=== PATIENT | female | born 1990 | race Caucasian/White ===

== ENCOUNTER 2019-09-27 13:18 | Inpatient (IN) | payer BC, MEDICAID, OTHER ==
[2019-09-27] MEDS ORDERED: ONDANSETRON HCL INJ/PF 4 MG/2 ML SDV IV ONE (13:34)
[2019-09-27] MEDS ORDERED: NORMAL SALINE 1000 ML 1,000 ML IV ONE ×2 (13:34→14:58)
[2019-09-27] MEDS ORDERED: FAMOTIDINE INJ/PF 20 MG/2 ML SDV IV ONE (13:34)
--- NOTE | 2019-09-27 13:37 | ER Document Report ---
ED GI/ - General Chief Complaint: Abdominal Pain Stated Complaint: ABDOMINAL PAIN Time Seen by Provider: 09/27/19 13:24 Mode of Arrival: Ambulatory Information source: Patient Notes: Patient presents complaining of nausea for the past several weeks with vomiting for the past week. Patient states today she developed abdominal pain with the emesis. Patient states she is vomited numerous times today with diarrhea x1 episode. Patient does report occasional dysuria although denies any concerns about a UTI. Patient denies any fever. TRAVEL OUTSIDE OF THE [place] IN LAST 30 DAYS: No - HPI Patient complains to provider of: Abdominal pain, Diarrhea, Vomiting Onset: Last week Timing/Duration: Worse Quality of pain: Sharp Pain Level: 4 Location: LUQ Vaginal bleeding (Compared to normal period): None Associated symptoms: Diarrhea, Loss of appetite, Nausea, Vomiting. denies: Constipation, Urinary hesitancy, Urinary frequency, Urinary retention, Urinary urgency Exacerbated by: Denies Relieved by: Denies Similar symptoms previously: No Recently seen / treated by doctor: No - Related Data Allergies/Adverse Reactions: No Known Allergies Allergy (Verified 09/27/19 13:27) Past Medical History - General Information source: Patient - Social History Smoking Status: Current Every Day Smoker Chew tobacco use (# tins/day): No Frequency of alcohol use: Social Drug Abuse: Marijuana Occupation: Retail Family History: Reviewed & Not Pertinent Patient has suicidal ideation: No Patient has homicidal ideation: No Psychiatric Medical History: Reports: Hx Anxiety Past Surgical History: Reports: Other - lip Review of Systems - Review of Systems Constitutional: No symptoms reported. denies: Fever, Recent illness EENT: No symptoms reported Cardiovascular: No symptoms reported. denies: Chest pain Respiratory: No symptoms reported. denies: Cough Gastrointestinal: Abdominal pain, Diarrhea, Nausea, Vomiting Genitourinary: Dysuria Female Genitourinary: No symptoms reported Musculoskeletal: No symptoms reported Skin: No symptoms reported Hematologic/Lymphatic: No symptoms reported Neurological/Psychological: No symptoms reported Physical Exam - Vital signs Vitals: Temp Pulse Resp BP Pulse Ox 97.7 F 76 16 132/70 H 99 09/27/19 13:23 09/27/19 13:23 09/27/19 13:23 09/27/19 13:23 09/27/19 13:23 - General General appearance: Appears well, Alert In distress: None - HEENT Head: Normocephalic, Atraumatic Eyes: Normal Conjunctiva: Normal Nasal: Normal Mouth/Lips: Normal Pharynx: Normal Neck: Normal, Supple. No: Lymphadenopathy - Respiratory Respiratory status: No respiratory distress Chest status: Nontender Breath sounds: Normal. No: Rales, Rhonchi, Stridor, Wheezing Chest palpation: Normal - Cardiovascular Rhythm: Regular Heart sounds: S1 appreciated, S2 appreciated - Abdominal Inspection: Normal Distension: No distension Bowel sounds: Normal Tenderness: Tender - LUQ Organomegaly: No organomegaly - Back Back: CVA tenderness - left - Extremities General upper extremity: Normal inspection, Normal ROM General lower extremity: Normal inspection, Normal ROM - Neurological Neuro grossly intact: Yes Cognition: Normal [place] Coma Scale Eye Opening: Spontaneous [place] Coma Scale Verbal: Oriented [place] Coma Scale Motor: Obeys Commands [place] Coma Scale Total: 15 - Psychological Associated symptoms: Anxious - Skin Skin Temperature: Warm Skin Moisture: Dry Skin Color: Normal Course - Re-evaluation Re-evalutation: 09/27/19 16:[address] Jain regarding patient presentation and her pain management as patient currently takes Suboxone. Recommends waiting for patient's ultrasound report first before addressing pain symptoms at this time. 09/27/19 17:06 Discussed results of ultrasound with Dr. Jain who recommends consulting hospitalist for admission at this time. Consulted with Dr. Lopez agrees to come and evaluate patient for admission at this time. Patient is agreeable with this plan of care. - Vital Signs Vital signs: Temp Pulse Resp BP Pulse Ox 98.0 F 76 3 L 131/82 H 99 09/27/19 15:01 09/27/19 13:23 09/27/19 17:19 09/27/19 15:01 09/27/19 15:01 - Laboratory Result Diagrams: 09/27/19 14:28 09/27/19 14:28 Laboratory results interpreted by me: 09/27/19 09/27/19 09/27/19 14:28 14:28 14:28 WBC 14.5 H Lymph % (Auto) 10.6 L Absolute Neuts (auto) 11.9 H Seg Neutrophils % 82.5 H Sodium 135.2 L Chloride 97 L Glucose 114 H AST 49 H Lipase 1757.9 H Urine Protein 30 H Urine Glucose (UA) 50 H Urine Ketones TRACE H Labs- Entire Visit 09/27/19 09/27/19 09/27/19 14:28 14:28 14:28 WBC 14.5 H RBC 4.96 Hgb 15.3 Hct 44.5 MCV 90 MCH 30.9 MCHC 34.4 RDW 13.9 Plt Count 404 Lymph % (Auto) 10.6 L [place] % (Auto) 6.7 Eos % (Auto) 0.0 Baso % (Auto) 0.2 Absolute Neuts (auto) 11.9 H Absolute Lymphs (auto) 1.5 Absolute Monos (auto) 1.0 Absolute Eos (auto) 0.0 Absolute Basos (auto) 0.0 Seg Neutrophils % 82.5 H Sodium 135.2 L Potassium 3.8 Chloride 97 L Carbon Dioxide 24 Anion Gap 14 BUN 19 Creatinine 0.68 Est GFR ( Amer) > 60 Est GFR (MDRD) Non-Af > 60 Glucose 114 H Calcium 9.4 Total Bilirubin 0.6 Direct Bilirubin 0.2 Neonat Total Bilirubin Not Reportable Neonat Direct Bilirubin Not Reportable Neonat Indirect Bili Not Reportable AST 49 H ALT 22 Alkaline Phosphatase 88 Total Protein 7.4 Albumin 4.3 Lipase 1757.9 H Serum HCG, Qual NEGATIVE Urine Color Urine Appearance Urine pH Ur Specific [place] Urine Protein Urine Glucose (UA) Urine Ketones Urine Blood Urine Nitrite Urine Bilirubin Urine Urobilinogen Ur Leukocyte Esterase Urine WBC (Auto) Urine RBC (Auto) Urine Bacteria (Auto) Squamous Epi Cells Auto Urine Mucus (Auto) Urine Ascorbic Acid 09/27/19 14:28 WBC RBC Hgb Hct MCV MCH MCHC RDW Plt Count Lymph % (Auto) [place] % (Auto) Eos % (Auto) Baso % (Auto) Absolute Neuts (auto) Absolute Lymphs (auto) Absolute Monos (auto) Absolute Eos (auto) Absolute Basos (auto) Seg Neutrophils % Sodium Potassium Chloride Carbon Dioxide Anion Gap BUN Creatinine Est GFR ( Amer) Est GFR (MDRD) Non-Af Glucose Calcium Total Bilirubin Direct Bilirubin Neonat Total Bilirubin Neonat Direct Bilirubin Neonat Indirect Bili AST ALT Alkaline Phosphatase Total Protein Albumin Lipase Serum HCG, Qual Urine Color RAIZA Urine Appearance SLIGHTLY-CLOUDY Urine pH 5.0 Ur Specific [place] 1.030 Urine Protein 30 H Urine Glucose (UA) 50 H Urine Ketones TRACE H Urine Blood NEGATIVE Urine Nitrite NEGATIVE Urine Bilirubin NEGATIVE Urine Urobilinogen NEGATIVE Ur Leukocyte Esterase NEGATIVE Urine WBC (Auto) 5 Urine RBC (Auto) 3 Urine Bacteria (Auto) TRACE Squamous Epi Cells Auto 10 Urine Mucus (Auto) MANY Urine Ascorbic Acid NEGATIVE - Diagnostic Test Radiology reviewed: Reports reviewed Discharge - Discharge Clinical Impression: Abdominal pain Qualifiers: Abdominal location: unspecified location Qualified Code(s): R10.9 - Unspecified abdominal pain Pancreatitis Qualifiers: Chronicity: acute Pancreatitis type: alcohol induced Acute pancreatitis complication: unspecified Qualified Code(s): K85.20 - Alcohol induced acute pancreatitis without necrosis or infection Disposition: ADMITTED OBSERVATION Admitting Provider: John (Hospitalist) Unit Admitted: Medical Floor
[2019-09-27] MEDS ORDERED: MAG HYDROX/AL HYDROX/SIMETH SUSP 30 ML UDCUP PO ONE (14:31)
[2019-09-27] MEDS ORDERED: LIDOCAINE 2% VISCOUS SOLN 15 ML UDCUP PO ONE (14:31)
[2019-09-27 14:43] LABS: ABSOLUTE LYMPHOCYTES (AUTO) 1.5 10^3/uL (0.5-4.7); ABSOLUTE NEUT (AUTO) 11.9 10^3/uL (1.7-8.2); BASOPHILS % (AUTO) 0.2 % (0-2); HEMATOCRIT 44.5 % (36.0-47.0); HEMOGLOBIN 15.3 g/dL (12.0-15.5); LYMPHOCYTES % (AUTO) 10.6 % (13-45); MEAN CORPUSCULAR HEMOGLOBIN 30.9 pg (27.0-33.4); MEAN CORPUSCULAR HGB CONC 34.4 g/dL (32.0-36.0); MEAN CORPUSCULAR VOLUME 90 fl (80-97); MONOCYTES % (AUTO) 6.7 % (3-13); PLATELET COUNT 404 10^3/uL (150-450); RED BLOOD COUNT 4.96 10^6/uL (3.72-5.28); RED CELL DISTRIBUTION WIDTH 13.9 % (11.5-14.0); SEGMENTED NEUTROPHILS % (AUTO) 82.5 % (42-78); TOTAL CELLS COUNTED % (AUTO) 100 %; WHITE BLOOD COUNT 14.5 10^3/uL (4.0-10.5)
[2019-09-27 14:55] LABS: APPEARANCE,URINE SLIGHTLY-CLOUDY; BILIRUBIN,URINE NEGATIVE (NEGATIVE); COLOR,URINE AMBER; GLUCOSE, URINE 50 mg/dL (NEGATIVE); KETONES,URINE TRACE mg/dL (NEGATIVE); LEUKOCYTE ESTERASE,URINE NEGATIVE (NEGATIVE); NITRITE,URINE NEGATIVE (NEGATIVE); PROTEIN,URINE 30 mg/dL (NEGATIVE); UROBILINOGEN,URINE NEGATIVE mg/dL (<2.0)
[2019-09-27 15:06] LABS: ALBUMIN 4.3 g/dL (3.5-5.0); ALKALINE PHOSPHATASE 88 U/L (38-126); ANION GAP 14 (5-19); ASPARTATE AMINO TRANSFERASE 49 U/L (14-36); BILIRUBIN,DIRECT 0.2 mg/dL (0.0-0.4); BILIRUBIN,TOTAL 0.6 mg/dL (0.2-1.3); BLOOD UREA NITROGEN 19 mg/dL (7-20); CALCIUM 9.4 mg/dL (8.4-10.2); CARBON DIOXIDE 24 mmol/L (22-30); CHLORIDE 97 mmol/L (98-107); GLUCOSE 114 mg/dL (75-110); POTASSIUM 3.8 mmol/L (3.6-5.0); TOTAL PROTEIN 7.4 g/dL (6.3-8.2)
--- NOTE | 2019-09-27 16:33 | RADIOLOGY REPORT (SQ) ---
EXAM DESCRIPTION: U/S ABDOMEN LIMITED W/O DOP IMAGES COMPLETED DATE/TIME: 09/27/2019 4:01 pm REASON FOR STUDY: upper abd pain COMPARISON: None. TECHNIQUE: Dynamic and static grayscale images acquired of the abdomen and recorded on PACS. Additio nal selected color Doppler and spectral images recorded. LIMITATIONS: Midline bowel gas FINDINGS: PANCREAS: Midline pancreas unremarkable LIVER: No masses. Echotexture normal. LIVER VASCULATURE: Normal directional flow of the main portal vein and hepatic veins. GALLBLADDER: No stones. Normal wall thickness. No pericholecystic fluid. ULTRASOUND-DETECTED PASTOR'S SIGN: Negative. INTRAHEPATIC DUCTS AND COMMON DUCT: CBD and intrahepatic ducts normal caliber. No filling defects. D istal common duct not well seen. INFERIOR VENA CAVA: Normal flow. AORTA: No aneurysm. RIGHT KIDNEY: Normal size. Normal echogenicity. No solid or suspicious masses. No hydronephrosis. No calcifications. PERITONEAL AND RIGHT PLEURAL SPACE: No ascites or effusions. OTHER: No other significant findings. IMPRESSION: NORMAL RIGHT UPPER QUADRANT ULTRASOUND. TECHNICAL DOCUMENTATION: JOB ID: [id number] [employer]- All Rights Reserved Reading location - IP/workstation name: [email or web address]
[2019-09-27] MEDS ORDERED: FOLIC ACID 1 MG TABLET PO ONE (17:30)
--- NOTE | 2019-09-27 17:33 | PDOC H&P ---
History of Present Illness Admission Date/PCP: 09/27/2019 Patient complains of: Abdominal pain History of Present Illness: BRADLEY ENAMORADO is a 29 year old female who has history of hypertension and depression and a drug abuse. She is on Suboxone. Patient apparently was under stress lately. She was laid off recently. She started drinking alcohol heavily over the past 2 to 3 weeks. He drinks few shots of liquor daily. She presents emergency room due to acute onset of epigastric sharp severe abdominal pain started this morning and has been consistent and associated with nausea or vomiting. Past Surgical History Past Surgical History: Reports: Other - lip Social History Smoking Status: Current Every Day Smoker Electronic Cigarette use?: No Family History Family History: Reviewed & Not Pertinent Parental Family History Reviewed: Yes Children Family History Reviewed: Yes Sibling(s) Family History Reviewed.: Yes Medication/Allergy Home Medications: Acyclovir 800 mg PO 5XD #35 tablet 09/14/15 Hydrocodone/Acetaminophen [[place] 5-325 mg Tablet] 1 tab PO Q4 PRN #16 tablet 09/14/15 Allergies/Adverse Reactions: No Known Allergies Allergy (Verified 09/27/19 13:27) Review of Systems All systems: reviewed and no additional remarkable complaints except as stated Physical Exam Vital Signs: Temp Pulse Resp BP Pulse Ox 98.0 F 76 3 L 131/82 H 99 09/27/19 15:01 09/27/19 13:23 09/27/19 17:19 09/27/19 15:01 09/27/19 15:01 Intake & Output 09/26/19 09/27/19 09/28/19 06:59 06:59 06:59 Intake Total 1000 Balance 1000 Weight 156 lb 4.924 oz General appearance: PRESENT: cooperative, mild distress Head exam: PRESENT: atraumatic, normocephalic Eye exam: PRESENT: EOMI, PERRLA Ear exam: ABSENT: bleeding Mouth exam: PRESENT: neck supple, tongue midline Neck exam: ABSENT: carotid bruit, meningismus, tenderness, thyromegaly Respiratory exam: PRESENT: clear to auscultation celia, symmetrical. ABSENT: accessory muscle use Cardiovascular exam: PRESENT: RRR. ABSENT: diastolic murmur, systolic murmur Pulses: PRESENT: normal carotid pulses, normal radial pulses Vascular exam: PRESENT: normal capillary refill GI/Abdominal exam: PRESENT: normal bowel sounds, soft, tenderness Rectal exam: PRESENT: deferred Extremities exam: ABSENT: pedal edema Musculoskeletal exam: PRESENT: ambulatory. ABSENT: deformity Neurological exam: PRESENT: alert, awake, oriented to person, oriented to place, oriented to time, oriented to situation, CN II-XII grossly intact. ABSENT: motor sensory deficit Psychiatric exam: PRESENT: anxious. ABSENT: homicidal ideation, suicidal ideation Skin exam: PRESENT: dry, intact. ABSENT: abrasion, cyanosis Results Laboratory Results: 09/27/19 14:28 09/27/19 14:28 09/27/19 09/27/19 09/27/19 14:28 14:28 14:28 WBC 14.5 H RBC 4.96 Hgb 15.3 Hct 44.5 MCV 90 MCH 30.9 MCHC 34.4 RDW 13.9 Plt Count 404 Seg Neutrophils % 82.5 H Sodium 135.2 L Potassium 3.8 Chloride 97 L Carbon Dioxide 24 Anion Gap 14 BUN 19 Creatinine 0.68 Est GFR ( Amer) > 60 Glucose 114 H Calcium 9.4 Total Bilirubin 0.6 AST 49 H Alkaline Phosphatase 88 Total Protein 7.4 Albumin 4.3 Lipase 1757.9 H Serum HCG, Qual NEGATIVE Urine Color Urine Appearance Urine pH Ur Specific [place] Urine Protein Urine Glucose (UA) Urine Ketones Urine Blood Urine Nitrite Ur Leukocyte Esterase Urine WBC (Auto) Urine RBC (Auto) 09/27/19 14:28 WBC RBC Hgb Hct MCV MCH MCHC RDW Plt Count Seg Neutrophils % Sodium Potassium Chloride Carbon Dioxide Anion Gap BUN Creatinine Est GFR ( Amer) Glucose Calcium Total Bilirubin AST Alkaline Phosphatase Total Protein Albumin Lipase Serum HCG, Qual Urine Color RAIZA Urine Appearance SLIGHTLY-CLOUDY Urine pH 5.0 Ur Specific [place] 1.030 Urine Protein 30 H Urine Glucose (UA) 50 H Urine Ketones TRACE H Urine Blood NEGATIVE Urine Nitrite NEGATIVE Ur Leukocyte Esterase NEGATIVE Urine WBC (Auto) 5 Urine RBC (Auto) 3 Impressions: Abdomen Ultrasound 09/27/19 15:32 IMPRESSION: NORMAL RIGHT UPPER QUADRANT ULTRASOUND. Assessment and Plan - Diagnosis (1) Abdominal pain Qualifiers: Abdominal location: unspecified location Qualified Code(s): R10.9 - Unspecified abdominal pain Is this a current diagnosis for this admission?: Yes Plan: Due to pancreatitis. Oxycodone as needed. (2) Pancreatitis Qualifiers: Chronicity: acute Pancreatitis type: alcohol induced Acute pancreatitis complication: unspecified Qualified Code(s): K85.20 - Alcohol induced acute pancreatitis without necrosis or infection Is this a current diagnosis for this admission?: Yes Plan: Alcoholic pancreatitis. Admit for observation. Aggressive IV fluids. Will start clear liquid diet. Antiemetics and analgesics PRN. (3) Hypertension Is this a current diagnosis for this admission?: Yes Plan: Resume home meds (4) Depression Is this a current diagnosis for this admission?: Yes Plan: Resume home meds (5) Alcoholism /alcohol abuse Is this a current diagnosis for this admission?: Yes Plan: Thiamine and folic acid supplements. Ativan as needed. (6) History of drug abuse Is this a current diagnosis for this admission?: Yes Plan: She is on Suboxone
[2019-09-27] MEDS ORDERED: THIAMINE HCL 100 MG TABLET PO ONE (18:00)
[2019-09-27] MEDS: OXYCODONE-ACETAMINOPHEN 5-325 MG TABLET PO PRN (18:41)
[2019-09-27] MEDS: NORMAL SALINE 1000 ML 1,000 ML IV PRN ×2 (18:46→22:10)
--- NOTE | 2019-09-27 18:55 | EKG REPORT ---
SEVERITY:- OTHERWISE NORMAL ECG - CORONARY SINUS RHYTHM : Confirmed by: Chandana Vines MD 27-Sep-2019 18:54:28
[2019-09-27] MEDS: LORAZEPAM 1 MG TABLET PO PRN (22:08)
[2019-09-28] MEDS: OXYCODONE-ACETAMINOPHEN 5-325 MG TABLET PO PRN ×4 (00:13→19:27)
[2019-09-28] MEDS: ONDANSETRON HCL INJ/PF 4 MG/2 ML SDV IV PRN (01:53)
[2019-09-28] MEDS: NORMAL SALINE 1000 ML 1,000 ML IV PRN ×4 (01:55→23:25)
[2019-09-28] MEDS: LORAZEPAM 1 MG TABLET PO PRN ×4 (03:56→23:25)
[2019-09-28 05:43] LABS: HEMATOCRIT 42.4 % (36.0-47.0); HEMOGLOBIN 14.4 g/dL (12.0-15.5); MEAN CORPUSCULAR HEMOGLOBIN 30.6 pg (27.0-33.4); MEAN CORPUSCULAR VOLUME 90 fl (80-97); PLATELET COUNT 304 10^3/uL (150-450); RED BLOOD COUNT 4.72 10^6/uL (3.72-5.28); RED CELL DISTRIBUTION WIDTH 13.7 % (11.5-14.0); WHITE BLOOD COUNT 13.8 10^3/uL (4.0-10.5)
[2019-09-28 06:00] LABS: ANION GAP 7 (5-19); BLOOD UREA NITROGEN 8 mg/dL (7-20); CALCIUM 8.3 mg/dL (8.4-10.2); CARBON DIOXIDE 26 mmol/L (22-30); CHLORIDE 99 mmol/L (98-107); CHOLESTEROL 87.44 mg/dL (0-200); GLUCOSE 107 mg/dL (75-110); POTASSIUM 4.2 mmol/L (3.6-5.0); TRIGLYCERIDES 58 mg/dL (<150)
[2019-09-28 06:11] LABS: DIRECT LDL < 30 mg/dL (<100)
[2019-09-28] MEDS: FOLIC ACID 1 MG TABLET PO SCH (09:22)
[2019-09-28] MEDS: THIAMINE HCL 100 MG TABLET PO SCH (09:22)
--- NOTE | 2019-09-28 13:11 | PDOC PROGRESS REPORT ---
Subjective Progress Note for:: 09/28/19 Subjective:: BRADLEY ENAMORADO is a 29 year old female who has history of hypertension and depression and a drug and alcohol abuse. She is on Suboxone. Patient was admitted 09/27/2019 for acute pancreatitis. Patient was seen on morning rounds and again briefly this afternoon. She was found resting in bed, comfortably, on room air. She reports continued abdominal discomfort, although, she states this is much better than yesterday. She reports continued nausea though without emesis and has tolerated her low residue diet well. She is asking to discharge to home. She denies fever, chest pain, palpitations, dyspnea, cough. She has no other questions or concerns. No concerns per nursing. Reason For Visit: PANCREATITIS Physical Exam Vital Signs: Temp Pulse Resp BP Pulse Ox 97.9 F 71 17 140/99 H 99 09/28/19 12:00 09/28/19 12:00 09/28/19 12:00 09/28/19 12:00 09/28/19 12:00 Intake & Output 09/27/19 09/28/19 09/29/19 06:59 06:59 06:59 Intake Total 5260 Balance 5260 Weight 72.9 kg General appearance: PRESENT: no acute distress, cooperative, well-developed, well-nourished Head exam: PRESENT: atraumatic, normocephalic Eye exam: PRESENT: conjunctiva pink, EOMI, PERRLA. ABSENT: scleral icterus Mouth exam: PRESENT: moist, tongue midline Respiratory exam: PRESENT: clear to auscultation celia, symmetrical, unlabored. ABSENT: rales, rhonchi, wheezes Cardiovascular exam: PRESENT: RRR, +S1, +S2. ABSENT: diastolic murmur, rubs, systolic murmur Pulses: PRESENT: normal dorsalis pedis pul Vascular exam: PRESENT: normal capillary refill GI/Abdominal exam: PRESENT: normal bowel sounds, soft. ABSENT: distended, guarding, mass, organolmegaly, rebound, tenderness Rectal exam: PRESENT: deferred Extremities exam: PRESENT: full ROM. ABSENT: calf tenderness, clubbing, pedal edema Musculoskeletal exam: PRESENT: ambulatory Neurological exam: PRESENT: alert, awake, oriented to person, oriented to place, oriented to time, oriented to situation, CN II-XII grossly intact. ABSENT: motor sensory deficit Psychiatric exam: PRESENT: appropriate affect, normal mood. ABSENT: homicidal ideation, suicidal ideation Skin exam: PRESENT: dry, intact, warm. ABSENT: cyanosis, rash Results Laboratory Results: 09/28/19 05:14 09/28/19 05:14 09/27/19 09/27/19 09/27/19 14:28 14:28 14:28 WBC 14.5 H RBC 4.96 Hgb 15.3 Hct 44.5 MCV 90 MCH 30.9 MCHC 34.4 RDW 13.9 Plt Count 404 Seg Neutrophils % 82.5 H Sodium 135.2 L Potassium 3.8 Chloride 97 L Carbon Dioxide 24 Anion Gap 14 BUN 19 Creatinine 0.68 Est GFR ( Amer) > 60 Glucose 114 H Calcium 9.4 Magnesium Total Bilirubin 0.6 AST 49 H Alkaline Phosphatase 88 Total Protein 7.4 Albumin 4.3 Triglycerides Cholesterol LDL Cholesterol Direct VLDL Cholesterol HDL Cholesterol Lipase 1757.9 H Serum HCG, Qual NEGATIVE Urine Color Urine Appearance Urine pH Ur Specific [place] Urine Protein Urine Glucose (UA) Urine Ketones Urine Blood Urine Nitrite Ur Leukocyte Esterase Urine WBC (Auto) Urine RBC (Auto) 09/27/19 09/28/19 09/28/19 14:28 05:14 05:14 WBC 13.8 H RBC 4.72 Hgb 14.4 Hct 42.4 MCV 90 MCH 30.6 MCHC 34.0 RDW 13.7 Plt Count 304 Seg Neutrophils % Sodium 132.4 L Potassium 4.2 Chloride 99 Carbon Dioxide 26 Anion Gap 7 BUN 8 Creatinine 0.55 Est GFR ( Amer) > 60 Glucose 107 Calcium 8.3 L Magnesium 1.6 Total Bilirubin AST Alkaline Phosphatase Total Protein Albumin Triglycerides 58 Cholesterol 87.44 LDL Cholesterol Direct < 30 VLDL Cholesterol 12.0 HDL Cholesterol 61 Lipase Serum HCG, Qual Urine Color RAIZA Urine Appearance SLIGHTLY-CLOUDY Urine pH 5.0 Ur Specific [place] 1.030 Urine Protein 30 H Urine Glucose (UA) 50 H Urine Ketones TRACE H Urine Blood NEGATIVE Urine Nitrite NEGATIVE Ur Leukocyte Esterase NEGATIVE Urine WBC (Auto) 5 Urine RBC (Auto) 3 09/28/19 05:14 WBC RBC Hgb Hct MCV MCH MCHC RDW Plt Count Seg Neutrophils % Sodium Potassium Chloride Carbon Dioxide Anion Gap BUN Creatinine Est GFR ( Amer) Glucose Calcium Magnesium Total Bilirubin AST Alkaline Phosphatase Total Protein Albumin Triglycerides Cholesterol LDL Cholesterol Direct VLDL Cholesterol HDL Cholesterol Lipase 6734.4 H Serum HCG, Qual Urine Color Urine Appearance Urine pH Ur Specific [place] Urine Protein Urine Glucose (UA) Urine Ketones Urine Blood Urine Nitrite Ur Leukocyte Esterase Urine WBC (Auto) Urine RBC (Auto) Impressions: Abdomen Ultrasound 09/27/19 15:32 IMPRESSION: NORMAL RIGHT UPPER QUADRANT ULTRASOUND. Assessment and Plan - Diagnosis (1) Pancreatitis Qualifiers: Chronicity: acute Pancreatitis type: alcohol induced Acute pancreatitis complication: unspecified Qualified Code(s): K85.20 - Alcohol induced acute pancreatitis without necrosis or infection Is this a current diagnosis for this admission?: Yes Plan: Alcoholic pancreatitis. Lipase trending up; 1.7k-> 6.7k WBC trending down; 14.5-> 13.8 Continue aggressive IV fluids. Advance to soft, low residue diet. Patient is tolerating well. Antiemetics and analgesics PRN. Follow up labs. (2) Abdominal pain Qualifiers: Abdominal location: unspecified location Qualified Code(s): R10.9 - Unspecified abdominal pain Is this a current diagnosis for this admission?: Yes Plan: Improved. Due to pancreatitis. Analgesics and antiemetics as needed. (3) Hypertension Is this a current diagnosis for this admission?: Yes Plan: Continue home dose Toprol. (4) Alcoholism /alcohol abuse Is this a current diagnosis for this admission?: Yes Plan: Thiamine and folic acid supplements. Ativan as needed. Monitor for evidence of withdrawal. (5) Depression Is this a current diagnosis for this admission?: Yes Plan: Continue home dose Celexa (6) History of drug abuse Is this a current diagnosis for this admission?: Yes Plan: Continue home dose Suboxone Patient has Rx with her; pharmacy to verify [facility]. - Time Time Spent with patient: 35 or more minutes Medications reviewed and adjusted accordingly: Yes Anticipated discharge: Home
[2019-09-28] MEDS ORDERED: CITALOPRAM HYDROBROMIDE 20 MG TABLET PO ONE (14:00)
[2019-09-28] MEDS ORDERED: METOPROLOL SUCCINATE 25 MG TAB.SR.24H PO ONE (14:00)
[2019-09-28] MEDS: BUPRENORPHINE SL SCH (14:34)
[2019-09-28] MEDS: NALOXONE SL SCH (14:34)
[2019-09-29] MEDS: OXYCODONE-ACETAMINOPHEN 5-325 MG TABLET PO PRN ×4 (02:32→21:41)
[2019-09-29] MEDS: NORMAL SALINE 1000 ML 1,000 ML IV PRN ×3 (06:03→21:41)
[2019-09-29 07:29] LABS: HEMATOCRIT 37.7 % (36.0-47.0); MEAN CORPUSCULAR HGB CONC 34.5 g/dL (32.0-36.0); MEAN CORPUSCULAR VOLUME 90 fl (80-97); PLATELET COUNT 247 10^3/uL (150-450); RED CELL DISTRIBUTION WIDTH 13.6 % (11.5-14.0); WHITE BLOOD COUNT 13.2 10^3/uL (4.0-10.5)
[2019-09-29 07:35] LABS: ANION GAP 6 (5-19); BLOOD UREA NITROGEN 3 mg/dL (7-20); CALCIUM 7.7 mg/dL (8.4-10.2); CARBON DIOXIDE 28 mmol/L (22-30); CHLORIDE 99 mmol/L (98-107); GLUCOSE 93 mg/dL (75-110); POTASSIUM 3.5 mmol/L (3.6-5.0)
[2019-09-29] MEDS: METOPROLOL SUCCINATE 25 MG TAB.SR.24H PO SCH (09:32)
[2019-09-29] MEDS: CITALOPRAM HYDROBROMIDE 20 MG TABLET PO SCH (09:32)
[2019-09-29] MEDS: THIAMINE HCL 100 MG TABLET PO SCH (09:32)
[2019-09-29] MEDS: FOLIC ACID 1 MG TABLET PO SCH (09:32)
[2019-09-29] MEDS: NALOXONE SL SCH (09:34)
[2019-09-29] MEDS: BUPRENORPHINE SL SCH (09:34)
--- NOTE | 2019-09-29 13:47 | PDOC PROGRESS REPORT ---
Subjective Progress Note for:: 09/29/19 Subjective:: Patient still complaining of abdominal pain Reason For Visit: PANCREATITIS Physical Exam Vital Signs: Temp Pulse Resp BP Pulse Ox 97.9 F 98 16 142/85 H 95 09/29/19 11:08 09/29/19 11:08 09/29/19 11:08 09/29/19 11:08 09/29/19 11:08 Intake & Output 09/28/19 09/29/19 09/30/19 06:59 06:59 06:59 Intake Total 5260 3440 120 Balance 5260 3440 120 Weight 72.9 kg 75.4 kg General appearance: PRESENT: no acute distress, well-developed, well-nourished Head exam: PRESENT: atraumatic, normocephalic Eye exam: PRESENT: conjunctiva pink, EOMI, PERRLA. ABSENT: scleral icterus Ear exam: PRESENT: normal external ear exam Mouth exam: PRESENT: moist, tongue midline Neck exam: ABSENT: carotid bruit, JVD, lymphadenopathy, thyromegaly Respiratory exam: PRESENT: clear to auscultation celia. ABSENT: rales, rhonchi, wheezes Cardiovascular exam: PRESENT: RRR. ABSENT: diastolic murmur, rubs, systolic murmur Pulses: PRESENT: normal dorsalis pedis pul Vascular exam: PRESENT: normal capillary refill GI/Abdominal exam: PRESENT: normal bowel sounds, soft, tenderness. ABSENT: distended, guarding, mass, organolmegaly, rebound Rectal exam: PRESENT: deferred Extremities exam: PRESENT: full ROM. ABSENT: calf tenderness, clubbing, pedal edema Neurological exam: PRESENT: alert, awake, oriented to person, oriented to place, oriented to time, oriented to situation, CN II-XII grossly intact. ABSENT: mo tor sensory deficit Psychiatric exam: PRESENT: appropriate affect, normal mood. ABSENT: homicidal ideation, suicidal ideation Skin exam: PRESENT: dry, intact, warm. ABSENT: cyanosis, rash Results Laboratory Results: 09/29/19 06:20 09/29/19 06:20 09/29/19 09/29/19 06:20 06:20 WBC 13.2 H RBC 4.20 Hgb 13.0 Hct 37.7 MCV 90 MCH 31.0 MCHC 34.5 RDW 13.6 Plt Count 247 Sodium 132.7 L Potassium 3.5 L Chloride 99 Carbon Dioxide 28 Anion Gap 6 BUN 3 L Creatinine 0.49 L Est GFR ( Amer) > 60 Glucose 93 Calcium 7.7 L Lipase 4451.9 H Impressions: Abdomen Ultrasound 09/27/19 15:32 IMPRESSION: NORMAL RIGHT UPPER QUADRANT ULTRASOUND. Assessment and Plan - Diagnosis (1) Abdominal pain Qualifiers: Abdominal location: unspecified location Qualified Code(s): R10.9 - Unspecified abdominal pain Is this a current diagnosis for this admission?: Yes Plan: Patient still complaining of abdominal pain. Of note her lipase went up to 6000 yesterday although it is down to 4000+ today. As she is still runner I will go ahead and obtain a CT of her abdomen which has not previously been done (2) Alcoholism /alcohol abuse Is this a current diagnosis for this admission?: Yes Plan: Thiamine and folic acid supplements. Ativan as needed. no evidence of withdrawal. (3) History of drug abuse Is this a current diagnosis for this admission?: Yes Plan: Continue home dose Suboxone (4) Pancreatitis Qualifiers: Chronicity: acute Pancreatitis type: alcohol induced Acute pancreatitis complication: unspecified Qualified Code(s): K85.20 - Alcohol induced acute pancreatitis without necrosis or infection Is this a current diagnosis for this admission?: Yes Plan: Alcoholic pancreatitis. Lipase trending up; 1.7k-> 6.7k to 4k WBC trending down; 14.5-> 13.8 Continue aggressive IV fluids. Advance to soft, low residue diet. CT as above
--- NOTE | 2019-09-29 14:29 | RADIOLOGY REPORT (SQ) ---
EXAM DESCRIPTION: CT ABD/PELVIS WITH IV ORAL IMAGES COMPLETED DATE/TIME: 09/29/2019 2:02 pm REASON FOR STUDY: Pancreatitis, persistent abdominal pain COMPARISON: Abdominal ultrasound dated 09/27/2019 TECHNIQUE: CT scan of the abdomen and pelvis performed using helical scanning technique with dynamic intravenous contrast injection. No oral contrast. Images reviewed with lung, soft tissue, and bone windows. Reconstructed coronal and sagittal MPR images reviewed. Delayed images for evaluation of the urinary system also acquired. All images stored on PACS. All CT scanners at this facility use dose modulation, iterative reconstruction, and/or weight based d osing when appropriate to reduce radiation dose to as low as reasonably achievable (ALARA). [facility]: Dose Right [facility]: CareDose [facility]: Dose Right [facility]: Teradose 4D [facility]: [employer] CONTRAST TYPE AND DOSE: contrast/concentration: Isovue 350.00 mg/ml; Total Contrast Delivered: 86.0 ml; Total Saline Delivered: 69.0 ml RENAL FUNCTION: None required. The patient is less than 50 years old. RADIATION DOSE: CT Rad equipment meets quality standard of care and radiation dose reduction techniq ues were employed. CTDIvol: 6.5 - 6.6 mGy. DLP: 703 mGy-cm.. LIMITATIONS: None. FINDINGS: LOWER CHEST: There are small bilateral pleural effusions. LIVER: Normal size. No masses. No dilated ducts. SPLEEN: Normal size. No focal lesions. PANCREAS: Pancreatic inflammatory changes consistent with the clinical diagnosis of pancreatitis. No focal pseudocyst. GALLBLADDER: No identified stones by CT criteria. No inflammatory changes to suggest cholecystitis. ADRENAL GLANDS: No significant masses or asymmetry. RIGHT KIDNEY AND URETER: No solid masses. No significant calcifications. No hydronephrosis or hyd roureter. LEFT KIDNEY AND URETER: No solid masses. No significant calcifications. No hydronephrosis or hydr oureter. AORTA AND VESSELS: No aneurysm. No dissection. Renal arteries, SMA, celiac without stenosis. RETROPERITONEUM: No retroperitoneal adenopathy, hemorrhage or masses. BOWEL AND PERITONEAL CAVITY: GI tract unremarkable. There is mild diffuse Ms. a trach inflammation. There is moderate volume ascites. APPENDIX: Normal. PELVIS: Free fluid in the pelvis. No masses. ABDOMINAL WALL: No masses. No hernias. BONES: No significant or acute findings. OTHER: No other significant finding. IMPRESSION: Diffuse peripancreatic inflammatory changes consistent with pancreatitis. Moderate volu me ascites. No focal fluid collections. Small bilateral pleural effusions. TECHNICAL DOCUMENTATION: JOB ID: [id number] Quality ID # [id number]: Final reports with documentation of one or more dose reduction techniques (e.g., Au tomated exposure control, adjustment of the mA and/or kV according to patient size, use of iterative reconstruction technique) 2010 [employer]- All Rights Reserved Reading location - IP/workstation name: [email or web address]
[2019-09-29] MEDS: LORAZEPAM 1 MG TABLET PO PRN ×2 (15:30→21:22)
[2019-09-29] MEDS: ONDANSETRON HCL INJ/PF 4 MG/2 ML SDV IV PRN ×2 (15:32→21:23)
[2019-09-30] MEDS: LORAZEPAM 1 MG TABLET PO PRN ×3 (01:27→18:48)
[2019-09-30] MEDS: OXYCODONE-ACETAMINOPHEN 5-325 MG TABLET PO PRN ×3 (05:00→18:48)
[2019-09-30] MEDS: NORMAL SALINE 1000 ML 1,000 ML IV PRN ×2 (05:10→15:06)
[2019-09-30 06:04] LABS: ANION GAP 8 (5-19); BLOOD UREA NITROGEN 3 mg/dL (7-20); CALCIUM 7.9 mg/dL (8.4-10.2); CARBON DIOXIDE 30 mmol/L (22-30); CHLORIDE 96 mmol/L (98-107); GLUCOSE 87 mg/dL (75-110); POTASSIUM 3.4 mmol/L (3.6-5.0)
[2019-09-30] MEDS ORDERED: DEXTROSE 40% GEL 15 GM TUBE PO PRN ×2 (11:00)
[2019-09-30] MEDS ORDERED: DEXTROSE 50%-WATER 25 GM/50 ML DISP.SYRIN IV PRN ×2 (11:00)
[2019-09-30] MEDS ORDERED: GLUCAGON,HUMAN RECOMB 1 MG INJ SUBCUT PRN (11:00)
[2019-09-30] MEDS: METOPROLOL SUCCINATE 25 MG TAB.SR.24H PO SCH (11:05)
[2019-09-30] MEDS: CITALOPRAM HYDROBROMIDE 20 MG TABLET PO SCH (11:05)
[2019-09-30] MEDS: BUPRENORPHINE SL SCH (11:06)
[2019-09-30] MEDS: NALOXONE SL SCH (11:06)
[2019-09-30] MEDS: THIAMINE HCL 100 MG TABLET PO SCH (11:06)
[2019-09-30] MEDS: FOLIC ACID 1 MG TABLET PO SCH (11:06)
--- NOTE | 2019-09-30 11:09 | PDOC PROGRESS REPORT ---
Subjective Progress Note for:: 09/30/19 Subjective:: Patient still complaining of abdominal pain CT scan done September 28 still reveals diffuse peripancreatic inflammation. Lipase level is on a downward trend however still more than 1000. Reason For Visit: PANCREATITIS Physical Exam Vital Signs: Temp Pulse Resp BP Pulse Ox 98.4 F 103 H 16 135/73 H 96 09/30/19 08:39 09/30/19 08:39 09/30/19 08:39 09/30/19 08:39 09/30/19 08:39 Intake & Output 09/29/19 09/30/19 10/01/19 06:59 06:59 06:59 Intake Total 3440 3360 Balance 3440 3360 Weight 75.4 kg 75 kg General appearance: PRESENT: no acute distress, well-developed, well-nourished Head exam: PRESENT: atraumatic, normocephalic Eye exam: PRESENT: conjunctiva pink, EOMI, PERRLA. ABSENT: scleral icterus Ear exam: PRESENT: normal external ear exam Mouth exam: PRESENT: moist, tongue midline Neck exam: ABSENT: carotid bruit, JVD, lymphadenopathy, thyromegaly Respiratory exam: PRESENT: clear to auscultation celia. ABSENT: rales, rhonchi, wheezes Cardiovascular exam: PRESENT: RRR, +S1, +S2. ABSENT: diastolic murmur, rubs, systolic murmur Pulses: PRESENT: normal dorsalis pedis pul Vascular exam: PRESENT: normal capillary refill GI/Abdominal exam: PRESENT: guarding, normal bowel sounds, rebound, soft, tenderness. ABSENT: distended, mass, organolmegaly Rectal exam: PRESENT: deferred Extremities exam: PRESENT: full ROM. ABSENT: calf tenderness, clubbing, pedal edema Neurological exam: PRESENT: alert, awake, oriented to person, oriented to place, oriented to time, oriented to situation, CN II-XII grossly intact. ABSENT: motor sensory deficit Psychiatric exam: PRESENT: appropriate affect, normal mood. ABSENT: homicidal ideation, suicidal ideation Skin exam: PRESENT: dry, intact, warm. ABSENT: cyanosis, rash Results Laboratory Results: 09/29/19 06:20 09/30/19 04:56 09/30/19 04:56 Sodium 133.7 L Potassium 3.4 L Chloride 96 L Carbon Dioxide 30 Anion Gap 8 BUN 3 L Creatinine 0.53 Est GFR ( Amer) > 60 Glucose 87 Calcium 7.9 L Lipase 1568.6 H Impressions: Abdomen Ultrasound 09/27/19 15:32 IMPRESSION: NORMAL RIGHT UPPER QUADRANT ULTRASOUND. Abdomen/Pelvis CT 09/29/19 13:45 IMPRESSION: Diffuse peripancreatic inflammatory changes consistent with pancrea titis. Moderate volume ascites. No focal fluid collections. Small bilateral pleural effusions. Assessment and Plan - Diagnosis (1) Abdominal pain Qualifiers: Abdominal location: unspecified location Qualified Code(s): R10.9 - Unspecified abdominal pain Is this a current diagnosis for this admission?: Yes Plan: Patient still complaining of abdominal pain. Of note her lipase went up to 6000 yesterday although it is down to 4000+ today. As she is drier and pulverizer tender I will go ahead and obtain a CT of her abdomen which has not previously been done 09/29. Patient still has abdominal pain consistent with her ongoing pancreatitis. We will make n.p.o. with bowel rest (2) Alcoholism /alcohol abuse Is this a current diagnosis for this admission?: Yes Plan: Thiamine and folic acid supplements. Ativan as needed. We will add Xanax to her regimen patient advised on the need to abstain from alcohol no evidence of withdrawal. (3) History of drug abuse Is this a current diagnosis for this admission?: Yes Plan: Continue home dose Suboxone (4) Pancreatitis Qualifiers: Chronicity: acute Pancreatitis type: alcohol induced Acute pancreatitis complication: unspecified Qualified Code(s): K85.20 - Alcohol induced acute pancreatitis without necrosis or infection Is this a current diagnosis for this admission?: Yes Plan: Alcoholic pancreatitis. Lipase trending up; 1.7k-> 6.7k to 4k WBC trending down; 14.5-> 13.8 Continue aggressive IV fluids. Advance to soft, low residue diet. CT as above 09/29 patient still has evidence of pancreatitis and she is unable to go home at this time. I will make her n.p.o. at least for the next 24 hours and reassess again tomorrow hopefully she will be clinically improved. We will continue with IV fluids. (5) Hypokalemia Is this a current diagnosis for this admission?: Yes Plan: Will replace
[2019-09-30] MEDS ORDERED: POTASSIUM CHLORIDE 10 MEQ TABLET.ER PO ONE (11:10)
[2019-09-30] MEDS ORDERED: ALPRAZOLAM 0.5 MG TABLET PO SCH (11:15)
[2019-09-30] MEDS: FAMOTIDINE INJ/PF 20 MG/2 ML SDV IV SCH (22:06)
[2019-10-01] MEDS: ALPRAZOLAM 0.5 MG TABLET PO PRN ×2 (01:26→10:33)
[2019-10-01] MEDS: NORMAL SALINE 1000 ML 1,000 ML IV PRN ×3 (02:36→13:23)
[2019-10-01] MEDS ORDERED: DIAZEPAM INJ 10 MG/2 ML DISP.SYRIN ONE (04:03)
[2019-10-01] MEDS: DIAZEPAM INJ 10 MG/2 ML DISP.SYRIN IV PRN ×8 (04:03→22:14)
[2019-10-01] MEDS ORDERED: CHLORPROMAZINE HCL INJ 25 MG/1 ML AMPULE IV PRN (04:15)
[2019-10-01] MEDS ORDERED: CHLORPROMAZINE HCL INJ 25 MG/1 ML AMPULE ONE (04:26)
[2019-10-01 06:34] LABS: ABSOLUTE EOSINOPHILS # (AUTO) 0.1 10^3/uL (0.0-0.6); ABSOLUTE LYMPHOCYTES (AUTO) 1.5 10^3/uL (0.5-4.7); ABSOLUTE MONOCYTES (AUTO) 1.4 10^3/uL (0.1-1.4); ABSOLUTE NEUT (AUTO) 7.9 10^3/uL (1.7-8.2); BASOPHILS % (AUTO) 0.2 % (0-2); EOSINOPHILS % (AUTO) 0.5 % (0-6); HEMATOCRIT 29.8 % (36.0-47.0); LYMPHOCYTES % (AUTO) 13.6 % (13-45); MEAN CORPUSCULAR HEMOGLOBIN 31.6 pg (27.0-33.4); MEAN CORPUSCULAR HGB CONC 35.1 g/dL (32.0-36.0); MEAN CORPUSCULAR VOLUME 90 fl (80-97); MONOCYTES % (AUTO) 12.9 % (3-13); PLATELET COUNT 239 10^3/uL (150-450); RED BLOOD COUNT 3.31 10^6/uL (3.72-5.28); RED CELL DISTRIBUTION WIDTH 13.7 % (11.5-14.0); SEGMENTED NEUTROPHILS % (AUTO) 72.8 % (42-78); TOTAL CELLS COUNTED % (AUTO) 100 %; WHITE BLOOD COUNT 10.8 10^3/uL (4.0-10.5)
[2019-10-01 06:50] LABS: HEMOGLOBIN 10.5 g/dL (12.0-15.5)
[2019-10-01 06:56] LABS: ANION GAP 9 (5-19); BLOOD UREA NITROGEN 4 mg/dL (7-20); CALCIUM 7.9 mg/dL (8.4-10.2); CARBON DIOXIDE 24 mmol/L (22-30); CHLORIDE 102 mmol/L (98-107); POTASSIUM 3.2 mmol/L (3.6-5.0)
[2019-10-01 06:58] LABS: GLUCOSE 61 mg/dL (75-110)
[2019-10-01] MEDS: POTASSIUM CHLORIDE 10 MEQ TABLET.ER PO SCH ×2 (10:33→13:19)
[2019-10-01] MEDS: CITALOPRAM HYDROBROMIDE 20 MG TABLET PO SCH (10:33)
[2019-10-01] MEDS: THIAMINE HCL 100 MG TABLET PO SCH (10:33)
[2019-10-01] MEDS: FOLIC ACID 1 MG TABLET PO SCH (10:34)
[2019-10-01] MEDS: BUPRENORPHINE SL SCH (10:34)
[2019-10-01] MEDS: METOPROLOL SUCCINATE 25 MG TAB.SR.24H PO SCH (10:34)
[2019-10-01] MEDS: FAMOTIDINE INJ/PF 20 MG/2 ML SDV IV SCH ×2 (10:34→22:13)
[2019-10-01] MEDS: NALOXONE SL SCH (10:34)
--- NOTE | 2019-10-01 13:36 | PDOC PROGRESS REPORT ---
Subjective Progress Note for:: 10/01/19 Subjective:: Events last p.m. noted. Patient appears to be in full blown withdrawal. She is currently sedated and sleeping. She apparently became increasingly confused with agitation and hallucinations. Reason For Visit: PANCREATITIS Physical Exam Vital Signs: Temp Pulse Resp BP Pulse Ox 98.1 F 78 17 130/87 H 96 09/30/19 22:48 09/30/19 22:48 09/30/19 22:48 09/30/19 22:48 09/30/19 22:48 Intake & Output 09/30/19 10/01/19 10/02/19 06:59 06:59 06:59 Intake Total 3360 3600 1000 Balance 3360 3600 1000 Weight 75 kg 76.3 kg General appearance: PRESENT: no acute distress, other - Sleeping, sedated Head exam: PRESENT: atraumatic, normocephalic Eye exam: ABSENT: scleral icterus Neck exam: ABSENT: carotid bruit, JVD, lymphadenopathy, thyromegaly Respiratory exam: PRESENT: clear to auscultation celia. ABSENT: rales, rhonchi, wheezes Cardiovascular exam: PRESENT: RRR, +S1, +S2. ABSENT: diastolic murmur, rubs, systolic murmur Vascular exam: PRESENT: normal capillary refill GI/Abdominal exam: PRESENT: normal bowel sounds, soft. ABSENT: distended, guarding, mass, organolmegaly, rebound, tenderness Rectal exam: PRESENT: deferred Extremities exam: ABSENT: calf tenderness, clubbing, pedal edema Neurological exam: PRESENT: other - Unable to evaluate as she is sleeping Psychiatric exam: ABSENT: homicidal ideation, suicidal ideation Skin exam: PRESENT: dry, intact, warm. ABSENT: cyanosis, rash Results Laboratory Results: 10/01/19 05:39 10/01/19 05:39 10/01/19 10/01/19 05:39 05:39 WBC 10.8 H RBC 3.31 L Hgb 10.5 L D Hct 29.8 L MCV 90 MCH 31.6 MCHC 35.1 RDW 13.7 Plt Count 239 Seg Neutrophils % 72.8 Sodium 134.9 L Potassium 3.2 L Chloride 102 Carbon Dioxide 24 Anion Gap 9 BUN 4 L Creatinine 0.40 L Est GFR ( Amer) > 60 Glucose 61 L Calcium 7.9 L Lipase 520.6 H Impressions: Abdomen Ultrasound 09/27/19 15:32 IMPRESSION: NORMAL RIGHT UPPER QUADRANT ULTRASOUND. Abdomen/Pelvis CT 09/29/19 13:45 IMPRESSION: Diffuse peripancreatic inflammatory changes consistent with pancreatitis. Moderate volume ascites. No focal fluid collections. Small bilateral pleural effusions. Assessment and Plan - Diagnosis (1) Alcoholism /alcohol abuse Is this a current diagnosis for this admission?: Yes Plan: Thiamine and folic acid supplements. She will need alcohol counseling (2) Abdominal pain Qualifiers: Abdominal location: unspecified location Qualified Code(s): R10.9 - Unspecified abdominal pain Is this a current diagnosis for this admission?: Yes (3) History of drug abuse Is this a current diagnosis for this admission?: Yes (4) Pancreatitis Qualifiers: Chronicity: acute Pancreatitis type: alcohol induced Acute pancreatitis complication: unspecified Qualified Code(s): K85.20 - Alcohol induced acute pancreatitis without necrosis or infection Is this a current diagnosis for this admission?: Yes Plan: Alcoholic pancreatitis. Lipase trending up; 1.7k-> 6.7k to 4k WBC trending down; 14.5-> 13.8 Continue aggressive IV fluids. Advance to soft, low residue diet. CT as above 09/29 patient still has evidence of pancreatitis and she is unable to go home at this time. I will make her n.p.o. at least for the next 24 hours and reassess again tomorrow hopefully she will be clinically improved. We will continue with IV fluids. 09/30 lipase level is down to 500. Will continue to make n.p.o. as she is unable to eat now anyway due to her sedation (5) Hypokalemia Is this a current diagnosis for this admission?: Yes (6) Alcohol withdrawal delirium, acute, hyperactive Is this a current diagnosis for this admission?: Yes Plan: Patient has been admitted for about 3 days so her last drink was at least 72 hours ago. This reflects as she has gone into withdrawal. She is currently and sedated with benzodiazepines. We will continue with this and continue to monitor patient (7) Anemia Qualifiers: Anemia type: unspecified type Qualified Code(s): D64.9 - Anemia, unspec ified Is this a current diagnosis for this admission?: Yes Plan: Etiology not clear. She has a precipitous drop in hemoglobin. Her hemoglobin had been relatively stable prior to now. There is no evidence of acute blood loss so will just monitor and recheck in a.m. Continue with PPI empirically
[2019-10-01] MEDS: POTASSI CL 20 MEQ/D5LR 1L 20 MEQ/1,000 ML RTUINJ IV PRN (14:18)
[2019-10-01] MEDS: OXYCODONE-ACETAMINOPHEN 5-325 MG TABLET PO PRN (22:14)
[2019-10-02] MEDS: POTASSI CL 20 MEQ/D5LR 1L 20 MEQ/1,000 ML RTUINJ IV PRN (00:28)
[2019-10-02] MEDS: LORAZEPAM 1 MG TABLET PO PRN ×2 (03:02→08:06)
[2019-10-02 03:49] LABS: URINE AMPHETAMINES SCREEN NEGATIVE; URINE BARBITURATES SCREEN NEGATIVE; URINE COCAINE SCREEN NEGATIVE; URINE MARIJUANA (THC) SCREEN NEGATIVE; URINE METHADONE SCREEN NEGATIVE; URINE PHENCYCLIDINE SCREEN NEGATIVE
[2019-10-02 03:57] LABS: URINE BENZODIAZEPINES SCREEN UNCONFIRMED POSITIVE
[2019-10-02 06:58] LABS: ABSOLUTE EOSINOPHILS # (AUTO) 0.1 10^3/uL (0.0-0.6); ABSOLUTE MONOCYTES (AUTO) 1.7 10^3/uL (0.1-1.4); ABSOLUTE NEUT (AUTO) 7.7 10^3/uL (1.7-8.2); BASOPHILS % (AUTO) 0.2 % (0-2); EOSINOPHILS % (AUTO) 1.3 % (0-6); HEMOGLOBIN 10.3 g/dL (12.0-15.5); MEAN CORPUSCULAR HEMOGLOBIN 31.1 pg (27.0-33.4); MEAN CORPUSCULAR HGB CONC 34.3 g/dL (32.0-36.0); MEAN CORPUSCULAR VOLUME 91 fl (80-97); MONOCYTES % (AUTO) 14.9 % (3-13); PLATELET COUNT 270 10^3/uL (150-450); RED BLOOD COUNT 3.31 10^6/uL (3.72-5.28); RED CELL DISTRIBUTION WIDTH 14.2 % (11.5-14.0); SEGMENTED NEUTROPHILS % (AUTO) 66.6 % (42-78); TOTAL CELLS COUNTED % (AUTO) 100 %; WHITE BLOOD COUNT 11.5 10^3/uL (4.0-10.5)
[2019-10-02 07:06] LABS: ALBUMIN 2.4 g/dL (3.5-5.0); ALKALINE PHOSPHATASE 64 U/L (38-126); ASPARTATE AMINO TRANSFERASE 23 U/L (14-36); BILIRUBIN,DIRECT 0.1 mg/dL (0.0-0.4); BILIRUBIN,TOTAL 0.2 mg/dL (0.2-1.3); BLOOD UREA NITROGEN 2 mg/dL (7-20); CARBON DIOXIDE 32 mmol/L (22-30); GLUCOSE 133 mg/dL (75-110); TOTAL PROTEIN 4.9 g/dL (6.3-8.2)
[2019-10-02 07:15] LABS: CHLORIDE 97 mmol/L (98-107)
[2019-10-02 07:17] LABS: ANION GAP 4 (5-19)
[2019-10-02] MEDS: OXYCODONE-ACETAMINOPHEN 5-325 MG TABLET PO PRN ×2 (08:06→14:20)
[2019-10-02] MEDS: FAMOTIDINE INJ/PF 20 MG/2 ML SDV IV SCH (10:44)
[2019-10-02] MEDS: METOPROLOL SUCCINATE 25 MG TAB.SR.24H PO SCH (10:44)
[2019-10-02] MEDS: FOLIC ACID 1 MG TABLET PO SCH (10:44)
[2019-10-02] MEDS: THIAMINE HCL 100 MG TABLET PO SCH (10:45)
[2019-10-02] MEDS: CITALOPRAM HYDROBROMIDE 20 MG TABLET PO SCH (10:45)
[2019-10-02] MEDS: NALOXONE SL SCH (10:51)
[2019-10-02] MEDS: BUPRENORPHINE SL SCH (10:51)
[2019-10-02] MEDS: ALPRAZOLAM 0.5 MG TABLET PO PRN (14:21)
--- NOTE | 2019-10-02 18:06 | PDOC DISCHARGE SUMMARY ---
Impression - Admit/DC Date/PCP Admission Date/Primary Care Provider: 09/28/19 12:45 Discharge Date: 10/02/19 - Discharge Diagnosis (1) Alcoholism /alcohol abuse Is this a current diagnosis for this admission?: Yes (2) Abdominal pain Is this a current diagnosis for this admission?: Yes (3) History of drug abuse Is this a current diagnosis for this admission?: Yes (4) Pancreatitis Is this a current diagnosis for this admission?: Yes (5) Hypokalemia Is this a current diagnosis for this admission?: Yes (6) Alcohol withdrawal delirium, acute, hyperactive Is this a current diagnosis for this admission?: Yes (7) Anemia Is this a current diagnosis for this admission?: Yes - Additional Information Discharge Diet: As Tolerated - soft, low fat. NO alcohol. Discharge Activity: Activity As Tolerated, Balance Activity w/Rest, Slowly Increase Activity Referrals: [facility] [Outside] (-Please call the free clinic to register and to be set up with [facility] for your continuity of care. ) Prescriptions: Ondansetron [Zofran Odt 4 mg Tablet] 1 - 2 tab PO Q4HP PRN #20 tab.rapdis PRN Reason: RX: Oxycodone HCl/Acetaminophen [Percocet 5-325 mg Tablet] 1 tab PO Q6HP PRN #12 tablet PRN Reason: RX: Alprazolam [Xanax 0.5 mg Tablet] 0.5 mg PO Q6HP PRN #20 tablet PRN Reason: RX: Folic Acid [Folvite 1 mg Tablet] 1 mg PO DAILY #30 tablet RX: Thiamine HCl [Thiamine 100 mg Tablet] 100 mg PO DAILY #30 tablet Home Medications: Ondansetron [Zofran Odt 4 mg Tablet] 1 - 2 tab PO Q4HP PRN #20 tab.rapdis 09/28/19 RX: Buprenorphine HCl/Naloxone HCl [Buprenorphin-Naloxon 8-2 mg Sl] 1.5 tab SL DAILY 09/28/19 RX: Citalopram Hydrobromide [Celexa 20 mg Tablet] 20 mg PO DAILY 09/28/19 RX: Folic Acid [Folvite 1 mg Tablet] 1 mg PO DAILY #30 tablet 09/28/19 RX: Metoprolol Succinate [Toprol Xl 25 mg Tab.sr] 37.5 mg PO DAILY 09/28/19 RX: Oxycodone HCl/Acetaminophen [Percocet 5-325 mg Tablet] 1 tab PO Q6HP PRN #12 tablet 09/28/19 RX: Thiamine HCl [Thiamine 100 mg Tablet] 100 mg PO DAILY #30 tablet 09/28/19 RX: Alprazolam [Xanax 0.5 mg Tablet] 0.5 mg PO Q6HP PRN #20 tablet 10/02/19 History of Present Illiness History of Present Illness: BRADLEY ENAMORADO is a 29 year old female Patient presents emergency room with complaints of abdominal pain associated with nausea and vomiting. She was found to have acute pancreatitis. She has a history of alcohol abuse. She was admitted for further management. Hospital Course Hospital Course: . Patient's initial lipase was 1757 on admission. She was placed on IV fluids and treated with bowel rest. Patient's lipase however climbed to 6700. Her abdominal pain did become worse. A CT scan done to confirm diffuse peripancreatic inflammation. Patient was placed on bowel rest and she was given IV fluids and this helped her with inflammation. In the interim patient went into acute alcohol withdrawal symptoms. She became very confused and was having some hallucinations. She was treated with Ativan and other benzodiazepines. Patient actually improved with this regimen. She was started on a diet today which she was able to tolerate. Patient is feeling better and at this time it is felt that she can be discharged home. She has been advised on the need to abstain from alcohol. Is been advised to abstain from drug use as well. Patient is been discharged home in stable condition Physical Exam Vital Signs: Temp Pulse Resp BP Pulse Ox 98.0 F 102 H 16 126/79 H 92 10/02/19 15:38 10/02/19 15:38 10/02/19 11:30 10/02/19 15:38 10/02/19 15:38 Intake & Output 10/01/19 10/02/19 10/03/19 06:59 06:59 06:59 Intake Total 3600 2000 360 Output Total 0 400 Balance 3600 2000 -40 Weight 76.3 kg 76.2 kg General appearance: PRESENT: no acute distress, well-developed, well-nourished Head exam: PRESENT: atraumatic, normocephalic Eye exam: PRESENT: conjunctiva pink, EOMI, PERRLA. ABSENT: scleral icterus Ear exam: PRESENT: normal external ear exam Mouth exam: PRESENT: moist, tongue midline Neck exam: ABSENT: carotid bruit, JVD, lymphadenopathy, thyromegaly Respiratory exam: PRESENT: clear to auscultation celia. ABSENT: rales, rhonchi, wheezes Cardiovascular exam: PRESENT: RRR. ABSENT: diastolic murmur, rubs, systolic murmur Pulses: PRESENT: normal dorsalis pedis pul Vascular exam: PRESENT: normal capillary refill GI/Abdominal exam: PRESENT: normal bowel sounds, soft. ABSENT: distended, guarding, mass, organolmegaly, rebound, tenderness Rectal exam: PRESENT: deferred Extremities exam: PRESENT: full ROM. ABSENT: calf tenderness, clubbing, pedal edema Neurological exam: PRESENT: alert, awake, oriented to person, oriented to place, oriented to time, oriented to situation, CN II-XII grossly intact. ABSENT: motor sensory deficit Psychiatric exam: PRESENT: appropriate affect, normal mood. ABSENT: homicidal ideation, suicidal ideation Skin exam: PRESENT: dry, intact, warm. ABSENT: cyanosis, rash Results Laboratory Results: WBC 11.5 10^3/uL (4.0-10.5) H 10/02/19 06:00 RBC 3.31 10^6/uL (3.72-5.28) L 10/02/19 06:00 Hgb 10.3 g/dL (12.0-15.5) L 10/02/19 06:00 Hct 30.0 % (36.0-47.0) L 10/02/19 06:00 MCV 91 fl (80-97) 10/02/19 06:00 MCH 31.1 pg (27.0-33.4) 10/02/19 06:00 MCHC 34.3 g/dL (32.0-36.0) 10/02/19 06:00 RDW 14.2 % (11.5-14.0) H 10/02/19 06:00 Plt Count 270 10^3/uL (150-450) 10/02/19 06:00 Lymph % (Auto) 17.0 % (13-45) 10/02/19 06:00 Rusk % (Auto) 14.9 % (3-13) H 10/02/19 06:00 Eos % (Auto) 1.3 % (0-6) 10/02/19 06:00 Baso % (Auto) 0.2 % (0-2) 10/02/19 06:00 Absolute Neuts (auto) 7.7 10^3/uL (1.7-8.2) 10/02/19 06:00 Absolute Lymphs (auto) 2.0 10^3/uL (0.5-4.7) 10/02/19 06:00 Absolute Monos (auto) 1.7 10^3/uL (0.1-1.4) H 10/02/19 06:00 Absolute Eos (auto) 0.1 10^3/uL (0.0-0.6) 10/02/19 06:00 Absolute Basos (auto) 0.0 10^3/uL (0.0-0.2) 10/02/19 06:00 Seg Neutrophils % 66.6 % (42-78) 10/02/19 06:00 Sodium 133.2 mmol/L (137-145) L 10/02/19 06:00 Potassium 4.0 mmol/L (3.6-5.0) 10/02/19 06:00 Chloride 97 mmol/L (98-107) L 10/02/19 06:00 Carbon Dioxide 32 mmol/L (22-30) H 10/02/19 06:00 Anion Gap 4 (5-19) L 10/02/19 06:00 BUN 2 mg/dL (7-20) L 10/02/19 06:00 Creatinine 0.43 mg/dL (0.52-1.25) L 10/02/19 06:00 Est GFR ( Amer) > 60 (>60) 10/02/19 06:00 Est GFR (MDRD) Non-Af > 60 (>60) 10/02/19 06:00 Glucose 133 mg/dL (75-110) H 10/02/19 06:00 POC Glucose 114 mg/dL (70-110) H 10/01/19 07:24 Hemoglobin A1c % 5.1 % (4.7-6.0) 09/27/19 14:28 Calcium 8.0 mg/dL (8.4-10.2) L 10/02/19 06:00 Magnesium 1.6 mg/dL (1.6-2.3) 09/28/19 05:14 Total Bilirubin 0.2 mg/dL (0.2-1.3) 10/02/19 06:00 Direct Bilirubin 0.1 mg/dL (0.0-0.4) 10/02/19 06:00 Neonat Total Bilirubin Not Reportable 10/02/19 06:00 Neonat Direct Bilirubin Not Reportable 10/02/19 06:00 Neonat Indirect Bili Not Reportable 10/02/19 06:00 AST 23 U/L (14-36) 10/02/19 06:00 ALT 8 U/L (<35) 10/02/19 06:00 Alkaline Phosphatase 64 U/L (38-126) 10/02/19 06:00 Total Protein 4.9 g/dL (6.3-8.2) L 10/02/19 06:00 Albumin 2.4 g/dL (3.5-5.0) L 10/02/19 06:00 Triglycerides 58 mg/dL (<150) 09/28/19 05:14 Cholesterol 87.44 mg/dL (0-200) 09/28/19 05:14 LDL Cholesterol Direct < 30 mg/dL (<100) 09/28/19 05:14 VLDL Cholesterol 12.0 mg/dL (10-31) 09/28/19 05:14 HDL Cholesterol 61 mg/dL (>40) 09/28/19 05:14 Lipase 535.3 U/L (23-300) H 10/02/19 06:00 Serum HCG, Qual NEGATIVE (NEGATIVE) 09/27/19 14:28 Urine Color RAIZA 09/27/19 14:28 Urine Appearance SLIGHTLY-CLOUDY 09/27/19 14:28 Urine pH 5.0 (5.0-9.0) 09/27/19 14:28 Ur Specific Regent 1.030 09/27/19 14:28 Urine Protein 30 mg/dL (NEGATIVE) H 09/27/19 14:28 Urine Glucose (UA) 50 mg/dL (NEGATIVE) H 09/27/19 14:28 Urine Ketones TRACE mg/dL (NEGATIVE) H 09/27/19 14:28 Urine Blood NEGATIVE (NEGATIVE) 09/27/19 14:28 Urine Nitrite NEGATIVE (NEGATIVE) 09/27/19 14:28 Urine Bilirubin NEGATIVE (NEGATIVE) 09/27/19 14:28 Urine Urobilinogen NEGATIVE mg/dL (<2.0) 09/27/19 14:28 Ur Leukocyte Esterase NEGATIVE (NEGATIVE) 09/27/19 14:28 Urine WBC (Auto) 5 /HPF 09/27/19 14:28 Urine RBC (Auto) 3 /HPF 09/27/19 14:28 Urine Bacteria (Auto) TRACE /HPF 09/27/19 14:28 Squamous Epi Cells Auto 10 /HPF 09/27/19 14:28 Urine Mucus (Auto) MANY /LPF 09/27/19 14:28 Urine Ascorbic Acid NEGATIVE (NEGATIVE) 09/27/19 14:28 Urine Opiates Screen NEGATIVE 10/02/19 03:17 Urine Methadone Screen NEGATIVE 10/02/19 03:17 Ur Barbiturates Screen NEGATIVE 10/02/19 03:17 Ur Phencyclidine Scrn NEGATIVE 10/02/19 03:17 Ur Amphetamines Screen NEGATIVE 10/02/19 03:17 U Benzodiazepines Scrn UNCONFIRMED POSITIVE 10/02/19 03:17 Urine Cocaine Screen NEGATIVE 10/02/19 03:17 U Marijuana (THC) Screen NEGATIVE 10/02/19 03:17 Impressions: Abdomen Ultrasound 09/27/19 15:32 IMPRESSION: NORMAL RIGHT UPPER QUADRANT ULTRASOUND. Abdomen/Pelvis CT 09/29/19 13:45 IMPRESSION: Diffuse peripancreatic inflammatory changes consistent with pancreatitis. Moderate volume ascites. No focal fluid collections. Small bilateral pleural effusions. Plan Health Concerns: Need to abstain from ETOH Stroke Is this a Stroke Patient?: No Acute Heart Failure - Is this a Heart Failure Patient?: No
[2019-10-02 18:29] VITALS: BP 140/99
== END 2019-10-02 19:14 | disposition home or self-care (01) | DRG 439 ==
LOC: ER 13:18 → EH 17:28 → 4N 18:20 → OBSVTOIN 09-28 12:45 → 4S 10-01 01:23
PROVIDERS: ADMIT Family Medicine; ATTEND Internal Medicine
DX: K85.20 Alcohol induced acute pancreatitis without necrosis or infection (principal); F10.231 Alcohol dependence with withdrawal delirium; F11.20 Opioid dependence, uncomplicated; I10 Essential (primary) hypertension; F32.9 Major depressive disorder, single episode, unspecified; F17.200 Nicotine dependence, unspecified, uncomplicated; E87.6 Hypokalemia
CPT/HCPCS: 36415; 74177; 76705; 80048; 80053; 80061; 80307; 81001; 82962; 83036; 83690; 83735; 84703; 85025; 85027; 93005; 93010; 96361; 96374; 99285; G0378; J2405; J3230; J3360; J3490; J7030; J7120; S0028

== ENCOUNTER 2019-12-24 14:26 | Emergency (ER) | payer SELFPAY ==
--- NOTE | 2019-12-24 15:29 | ER Document Report ---
ED Medical Screen (RME) - General Chief Complaint: Alcohol Withdrawl Stated Complaint: DETOX Time Seen by Provider: 12/24/19 15:25 Information source: Patient Notes: This 29-year-old female presents to the emergency room today stating that she feels that she is going to alcohol withdrawal she is having nausea vomiting last took a few sips of alcohol this morning to help the tremors. TRAVEL OUTSIDE OF THE [place] IN LAST 30 DAYS: No - Related Data Allergies/Adverse Reactions: No Known Allergies Allergy (Verified 12/24/19 15:07) Past Medical History - Social History Frequency of alcohol use: Heavy Drug Abuse: Prescription drugs, Other - Past Medical History Cardiac Medical History: Denies: Hx Hypertension Pulmonary Medical History: Reports: Hx Bronchitis Renal/ Medical History: Denies: Hx Kidney Stones GI Medical History: Denies: Hx Gastroesophageal Reflux Disease Psychiatric Medical History: Reports: Hx Anxiety, Hx Depression Past Surgical History: Reports: Other - lip Physical Exam - Vital signs Vitals: Temp Pulse Resp BP Pulse Ox 98.7 F 117 H 18 144/91 H 96 12/24/19 14:31 12/24/19 14:31 12/24/19 14:31 12/24/19 14:31 12/24/19 14:31 Course - Vital Signs Vital signs: Temp Pulse Resp BP Pulse Ox 98.7 F 117 H 18 144/91 H 96 12/24/19 15:08 12/24/19 14:31 12/24/19 14:31 12/24/19 14:31 12/24/19 14:31
[2019-12-24] MEDS ORDERED: ONDANSETRON HCL INJ/PF 4 MG/2 ML SDV IV ONE (15:30)
[2019-12-24 15:54] LABS: ABSOLUTE LYMPHOCYTES (AUTO) 1.5 10^3/uL (0.5-4.7); ABSOLUTE MONOCYTES (AUTO) 0.3 10^3/uL (0.1-1.4); ABSOLUTE NEUT (AUTO) 7.5 10^3/uL (1.7-8.2); BASOPHILS % (AUTO) 0.3 % (0-2); HEMATOCRIT 38.1 % (36.0-47.0); HEMOGLOBIN 13.2 g/dL (12.0-15.5); LYMPHOCYTES % (AUTO) 15.9 % (13-45); MEAN CORPUSCULAR HEMOGLOBIN 31.8 pg (27.0-33.4); MEAN CORPUSCULAR HGB CONC 34.6 g/dL (32.0-36.0); MEAN CORPUSCULAR VOLUME 92 fl (80-97); MONOCYTES % (AUTO) 3.1 % (3-13); PLATELET COUNT 290 10^3/uL (150-450); RED BLOOD COUNT 4.15 10^6/uL (3.72-5.28); RED CELL DISTRIBUTION WIDTH 15.1 % (11.5-14.0); SEGMENTED NEUTROPHILS % (AUTO) 80.7 % (42-78); TOTAL CELLS COUNTED % (AUTO) 100 %; WHITE BLOOD COUNT 9.3 10^3/uL (4.0-10.5)
[2019-12-24 15:57] LABS: APPEARANCE,URINE CLEAR; BILIRUBIN,URINE NEGATIVE (NEGATIVE); COLOR,URINE STRAW; GLUCOSE, URINE NEGATIVE (NEGATIVE); KETONES,URINE 80 mg/dL (NEGATIVE); LEUKOCYTE ESTERASE,URINE NEGATIVE (NEGATIVE); NITRITE,URINE NEGATIVE (NEGATIVE); PROTEIN,URINE NEGATIVE (NEGATIVE); UROBILINOGEN,URINE NEGATIVE mg/dL (<2.0)
[2019-12-24 16:15] LABS: ALBUMIN 4.8 g/dL (3.5-5.0); ALKALINE PHOSPHATASE 155 U/L (38-126); ANION GAP 19 (5-19); ASPARTATE AMINO TRANSFERASE 730 U/L (14-36); BILIRUBIN,DIRECT 0.2 mg/dL (0.0-0.4); BILIRUBIN,TOTAL 0.5 mg/dL (0.2-1.3); BLOOD UREA NITROGEN 13 mg/dL (7-20); CALCIUM 9.3 mg/dL (8.4-10.2); CARBON DIOXIDE 21 mmol/L (22-30); CHLORIDE 97 mmol/L (98-107); GLUCOSE 162 mg/dL (75-110); POTASSIUM 4.5 mmol/L (3.6-5.0); TOTAL PROTEIN 7.7 g/dL (6.3-8.2)
[2019-12-24 16:16] LABS: URINE AMPHETAMINES SCREEN NEGATIVE; URINE BARBITURATES SCREEN NEGATIVE; URINE BENZODIAZEPINES SCREEN NEGATIVE; URINE COCAINE SCREEN NEGATIVE; URINE MARIJUANA (THC) SCREEN NEGATIVE; URINE METHADONE SCREEN NEGATIVE; URINE PHENCYCLIDINE SCREEN NEGATIVE
--- NOTE | 2019-12-24 18:27 | ER Document Report ---
Entered by NUBIA GARLAND SCRIBE 12/24/19 1804 Acting as scribe for:KENA JIM DO ED General - General Chief Complaint: Alcohol Withdrawl Stated Complaint: DETOX Time Seen by Provider: 12/24/19 15:25 Mode of Arrival: Ambulatory Information source: Patient Notes: This 29-year-old female patient presents to the emergency department today with complaints of EtOH abuse and wanting to detox. Patient reports that she has detoxed in the past and states that for about a month in August this year she was completely sober. Patient began drinking again in September 2019 and has not stopped since. Patient states she drinks around 750 mL of hard liquor a day. Patient also mentions some back pain today which she states feels like pancreatitis that she has had in the past. TRAVEL OUTSIDE OF THE [place] IN LAST 30 DAYS: No - Related Data Allergies/Adverse Reactions: No Known Allergies Allergy (Verified 12/24/19 15:07) Past Medical History - General Information source: Patient - Social History Smoking Status: Never Smoker Frequency of alcohol use: Heavy Drug Abuse: Prescription drugs Lives with: Family Family History: Reviewed & Not Pertinent Patient has homicidal ideation: No Pulmonary Medical History: Reports: Hx Bronchitis Psychiatric Medical History: Reports: Hx Anxiety, Hx Depression Past Surgical History: Reports: Other - lip Review of Systems - Review of Systems Constitutional: See HPI, Other - EtOH abuse EENT: No symptoms reported Cardiovascular: No symptoms reported Respiratory: No symptoms reported Gastrointestinal: No symptoms reported Genitourinary: No symptoms reported Female Genitourinary: No symptoms reported Musculoskeletal: No symptoms reported Skin: No symptoms reported Hematologic/Lymphatic: No symptoms reported Neurological/Psychological: No symptoms reported -: Yes All other systems reviewed and negative Physical Exam - Vital signs Vitals: Temp Pulse Resp BP Pulse Ox 98.7 F 117 H 18 144/91 H 96 12/24/19 14:31 12/24/19 14:31 12/24/19 14:31 12/24/19 14:31 12/24/19 14:31 - Notes Notes: Physical Exam: General: Alert, appears well. Very fine tremor. HEENT: Normocephalic. Atraumatic. PERRL. Extraocular movements intact. Oropharynx clear. Neck: Supple. Non-tender. Respiratory: No respiratory distress. Clear and equal breath sounds bilaterally. Cardiovascular: Regular rate and rhythm. Abdominal: Normal Inspection. Non-tender. No distension. Normal Bowel Sounds. Back: No gross abnormalities. Extremities: Moves all four extremities. Upper extremities: Normal inspection. Normal ROM. Lower extremities: Normal inspection. No edema. Normal ROM. Neurological: Normal cognition. AAOx4. Normal speech. Very fine tremor. Psychological: Normal affect. Normal Mood. Skin: Warm. Dry. Normal color. Course - Re-evaluation Re-evalutation: 12/24/19 19:57 MDM 29 year old with Etohism is here for treatment. No SI. She is medically cleared. I have consulted Dr. Morris and the pt will be in the ED tonight awaiting consult. She has elevated Etoh level and has been administered IVF and ativan. She understands the process and Pt has been transferred to the next provider. - Vital Signs Vital signs: Temp Pulse Resp BP Pulse Ox 98.7 F 117 H 18 144/91 H 96 12/24/19 15:08 12/24/19 14:31 12/24/19 14:31 12/24/19 14:31 12/24/19 14:31 - Laboratory Result Diagrams: 12/24/19 15:38 12/24/19 15:38 Laboratory results interpreted by me: 12/24/19 12/24/19 12/24/19 15:30 15:38 15:38 RDW 15.1 H Seg Neutrophils % 80.7 H Chloride 97 L Carbon Dioxide 21 L Glucose 162 H AST 730 H ALT 213 H Alkaline Phosphatase 155 H Lipase 551.1 H Urine Ketones 80 H Urine Blood SMALL H Discharge - Discharge Clinical Impression: Alcoholism /alcohol abuse Pancreatitis Qualifiers: Chronicity: acute Pancreatitis type: alcohol induced Acute pancreatitis complication: unspecified Qualified Code(s): K85.20 - Alcohol induced acute pancreatitis without necrosis or infection Condition: Stable Disposition: PSYCH HOSP/UNIT I personally performed the services described in the documentation, reviewed and edited the documentation which was dictated to the scribe in my presence, and it accurately records my words and actions.
[2019-12-24] MEDS ORDERED: LORAZEPAM INJ 2 MG/1 ML VIAL IV ONE ×2 (18:42→19:50)
--- NOTE | 2019-12-24 19:44 | RADIOLOGY REPORT (SQ) ---
EXAM DESCRIPTION: CT ABD/PELVIS WITH IV ONLY IMAGES COMPLETED DATE/TIME: 12/24/2019 7:28 pm REASON FOR STUDY: pancreatitis COMPARISON: None. TECHNIQUE: CT scan of the abdomen and pelvis performed using helical scanning technique with dynamic intravenous contrast injection. No oral contrast. Images reviewed with lung, soft tissue, and bone windows. Reconstructed coronal and sagittal MPR images reviewed. Delayed images for evaluation of the urinary system also acquired. All images stored on PACS. All CT scanners at this facility use dose modulation, iterative reconstruction, and/or weight based d osing when appropriate to reduce radiation dose to as low as reasonably achievable (ALARA). [facility]: Dose Right [facility]: CareDose [facility]: Dose Right [facility]: Teradose 4D [facility]: [email or web address] CONTRAST TYPE AND DOSE: 75 cc Omnipaque 350- low osmolar. RENAL FUNCTION: None required. The patient is less than 50 years old. RADIATION DOSE: CT Rad equipment meets quality standard of care and radiation dose reduction techniq ues were employed. CTDIvol: 4.2 - 4.2 mGy. DLP: 432 mGy-cm.. LIMITATIONS: None. FINDINGS: LOWER CHEST: No significant findings. No nodules or infiltrates. LIVER: The liver is diffusely hypoattenuating. No masses. SPLEEN: Normal size. No focal lesions. PANCREAS: No obvious inflammatory process. No fluid around the pancreas. No pancreatic mass. GALLBLADDER: No identified stones by CT criteria. No inflammatory changes to suggest cholecystitis. ADRENAL GLANDS: No significant masses or asymmetry. RIGHT KIDNEY AND URETER: No solid masses. No significant calcifications. No hydronephrosis or hyd roureter. LEFT KIDNEY AND URETER: No solid masses. No significant calcifications. No hydronephrosis or hydr oureter. AORTA AND VESSELS: No aneurysm. No dissection. Renal arteries, SMA, celiac without stenosis. RETROPERITONEUM: No retroperitoneal adenopathy, hemorrhage or masses. BOWEL AND PERITONEAL CAVITY: No masses or inflammatory changes. No free fluid or peritoneal masses. APPENDIX: Not identified. PELVIS: No mass. No free fluid. Normal bladder. ABDOMINAL WALL: No masses. No hernias. BONES: No significant or acute findings. OTHER: No other significant finding. IMPRESSION: Hepatic steatosis. There are no findings that suggest acute pancreatitis or chronic lora creatitis at this time. Follow-up as clinically indicated. TECHNICAL DOCUMENTATION: JOB ID: [id number] Quality ID # [id number]: Final reports with documentation of one or more dose reduction techniques (e.g., Au tomated exposure control, adjustment of the mA and/or kV according to patient size, use of iterative reconstruction technique) 2010 [employer]- All Rights Reserved Reading location - IP/workstation name: [email or web address]
[2019-12-24] MEDS ORDERED: RINGERS SOLUTION,LACTATED 1,000 ML IV ONE (19:59)
[2019-12-24] MEDS ORDERED: KETOROLAC TROMETHAMINE INJ/PF 30 MG/1 ML SDV IV ONE (22:16)
[2019-12-24] MEDS ORDERED: ONDANSETRON 4 MG TAB.RAPDIS PO ONE (22:16)
[2019-12-25] MEDS ORDERED: LORAZEPAM INJ 2 MG/1 ML VIAL IV ONE ×3 (00:12→11:38)
[2019-12-25] MEDS ORDERED: ACETAMINOPHEN 325 MG TABLET PO ONE (03:34)
[2019-12-25] MEDS ORDERED: IBUPROFEN 600 MG TABLET PO ONE (05:46)
[2019-12-25 12:15] VITALS: BP 146/100
== END 2019-12-25 12:15 | disposition home or self-care (01) ==
LOC: ER 14:26
DX: F10.20 Alcohol dependence, uncomplicated (principal); M54.9 Dorsalgia, unspecified; F19.10 Other psychoactive substance abuse, uncomplicated; Z87.19 Personal history of other diseases of the digestive system
CPT/HCPCS: 96376; 99285; 96361; 96374; 96375; 36415; 80307 ×2; 83690; 84703; 85025; 80053; 81001; 74177; S0119; J1885; J2060 ×2; J2405; J7120

== ENCOUNTER 2020-01-04 21:36 | Emergency (ER) | payer MEDICAID ==
[2020-01-04] MEDS ORDERED: NORMAL SALINE 1000 ML 1,000 ML IV ONE (22:17)
[2020-01-04] MEDS ORDERED: LORAZEPAM INJ 2 MG/1 ML VIAL IV ONE (22:18)
--- NOTE | 2020-01-04 22:20 | ER Document Report ---
ED Medical Screen (RME) - General Chief Complaint: ETOH Abuse Stated Complaint: DETOX Time Seen by Provider: 01/04/20 22:09 Mode of Arrival: Wheelchair Information source: Patient, Relative - Aunt TRAVEL OUTSIDE OF THE [place] IN LAST 30 DAYS: No - Related Data Allergies/Adverse Reactions: No Known Allergies Allergy (Verified 12/24/19 15:07) Home Medications: baclofan, metoprolol, suboxin, acamprosate Past Medical History - Past Medical History Cardiac Medical History: Denies: Hx Hypertension Pulmonary Medical History: Reports: Hx Bronchitis Renal/ Medical History: Denies: Hx Kidney Stones GI Medical History: Denies: Hx Gastroesophageal Reflux Disease Psychiatric Medical History: Reports: Hx Anxiety, Hx Depression Past Surgical History: Reports: Other - lip Physical Exam - Vital signs Vitals: Temp Pulse Resp BP Pulse Ox 99.2 F 85 18 123/85 98 01/04/20 22:03 01/04/20 22:03 01/04/20 22:03 01/04/20 22:03 01/04/20 22:03 Course - Re-evaluation Re-evalutation: 01/04/20 22:19 Patient is an otherwise healthy 29-year-old female presenting to the emergency department with concern for alcohol withdrawal. Patient was brought here by her aunt who states that she has a inpatient alcohol rehab set up for her in the morning in [place]. Her aunt is planning to drive her there first thing in the morning. Unfortunately patient is already having withdrawal symptoms to include tremor and sweats. Her aunt is hoping that she can get medical treatment here through the night until she goes to the inpatient treatment center in the morning. Patient is alert, oriented, answering all questions appropriately. She denies any SI or HI. She reports that she drinks about 1/5 a day of liquor. Tremor noted in triage, skin flushed. I have greeted and performed a rapid initial assessment of this patient. A comprehensive ED assessment and evaluation of the patient, analysis of test results and completion of the medical decision making process will be conducted by additional ED providers. I have specifically instructed the patient or family members with the patient to immediately return to any nursing staff should anything change in the patient's condition or with their chief complaint. - Vital Signs Vital signs: Temp Pulse Resp BP Pulse Ox 99.2 F 85 18 123/85 98 01/04/20 22:03 01/04/20 22:03 01/04/20 22:03 01/04/20 22:03 01/04/20 22:03
[2020-01-04 22:48] LABS: ABSOLUTE MONOCYTES (AUTO) 0.3 10^3/uL (0.1-1.4); EOSINOPHILS % (AUTO) 0.1 % (0-6); TOTAL CELLS COUNTED % (AUTO) 100 %; WHITE BLOOD COUNT 4.9 10^3/uL (4.0-10.5)
[2020-01-04 22:55] LABS: AMORPHOUS SEDIMENT,URINE TRACE /HPF; APPEARANCE,URINE SLIGHTLY-CLOUDY; BILIRUBIN,URINE NEGATIVE (NEGATIVE); COLOR,URINE YELLOW; GLUCOSE, URINE NEGATIVE (NEGATIVE); KETONES,URINE NEGATIVE (NEGATIVE); LEUKOCYTE ESTERASE,URINE NEGATIVE (NEGATIVE); NITRITE,URINE NEGATIVE (NEGATIVE); PROTEIN,URINE NEGATIVE (NEGATIVE); URINE SPECIFIC GRAVITY 1.013; UROBILINOGEN,URINE NEGATIVE mg/dL (<2.0)
[2020-01-04 23:01] LABS: ALBUMIN 4.9 g/dL (3.5-5.0); ALKALINE PHOSPHATASE 114 U/L (38-126); ANION GAP 13 (5-19); ASPARTATE AMINO TRANSFERASE 397 U/L (14-36); BILIRUBIN,TOTAL 0.3 mg/dL (0.2-1.3); BLOOD UREA NITROGEN 12 mg/dL (7-20); CALCIUM 9.5 mg/dL (8.4-10.2); CARBON DIOXIDE 28 mmol/L (22-30); CHLORIDE 101 mmol/L (98-107); GLUCOSE 130 mg/dL (75-110); POTASSIUM 4.3 mmol/L (3.6-5.0); TOTAL PROTEIN 7.8 g/dL (6.3-8.2)
[2020-01-04 23:09] LABS: URINE AMPHETAMINES SCREEN NEGATIVE; URINE BARBITURATES SCREEN NEGATIVE; URINE BENZODIAZEPINES SCREEN NEGATIVE; URINE COCAINE SCREEN NEGATIVE; URINE MARIJUANA (THC) SCREEN NEGATIVE; URINE METHADONE SCREEN NEGATIVE; URINE PHENCYCLIDINE SCREEN NEGATIVE
[2020-01-04] MEDS ORDERED: LORAZEPAM 1 MG TABLET PO ONE (23:10)
[2020-01-04 23:13] LABS: ABSOLUTE LYMPHOCYTES (AUTO) 2.2 10^3/uL (0.5-4.7); ABSOLUTE NEUT (AUTO) 2.3 10^3/uL (1.7-8.2); BASOPHILS % (AUTO) 0.7 % (0-2); HEMATOCRIT 42.4 % (36.0-47.0); HEMOGLOBIN 14.6 g/dL (12.0-15.5); LYMPHOCYTES % (AUTO) 44.5 % (13-45); MEAN CORPUSCULAR HEMOGLOBIN 31.7 pg (27.0-33.4); MEAN CORPUSCULAR HGB CONC 34.3 g/dL (32.0-36.0); MEAN CORPUSCULAR VOLUME 92 fl (80-97); MONOCYTES % (AUTO) 6.6 % (3-13); PLATELET COUNT 445 10^3/uL (150-450); RED CELL DISTRIBUTION WIDTH 14.3 % (11.5-14.0); SEGMENTED NEUTROPHILS % (AUTO) 48.1 % (42-78)
[2020-01-04 23:17] LABS: ALCOHOL 340 mg/dL (NONE DETECTED)
[2020-01-04] MEDS ORDERED: PROMETHAZINE HCL 25 MG TABLET PO ONE (23:46)
[2020-01-05] MEDS ORDERED: LORAZEPAM INJ 2 MG/1 ML VIAL IV ONE (01:30)
--- NOTE | 2020-01-05 01:33 | ER Document Report ---
ED General - General Chief Complaint: ETOH Abuse Stated Complaint: DETOX Time Seen by Provider: 01/04/20 22:09 Mode of Arrival: Wheelchair TRAVEL OUTSIDE OF THE [place] IN LAST 30 DAYS: No - HPI Notes: Chief complaint: Alcohol detox HPI: 29-year-old female with longstanding history of chronic alcoholism regularly consuming in excess of 1/5 of whiskey per day brought into the emergency department tonight by her aunt requesting that we assist her with detox. Family has made arrangements for this patient to go to a private detox facility in the [facility] and aunt has agreed to drive her there tomorrow. Family was, however, concerned patient would experience withdrawal symptoms tonight and therefore brought her to the emergency department requesting that we treat her with medications and IV fluids until her aunt could transport her to [id number] facility tomorrow. Patient drank whiskey as recently as 1 hour prior to arrival in the ER tonight. She denies any drug use. She says she feels mildly tremulous but has no other specific symptoms. She denies vomiting at this time and is actually hungry. She denies auditory or visual hallucinations. She denies any suicidal or homicidal ideation. - Related Data Allergies/Adverse Reactions: No Known Allergies Allergy (Verified 12/24/19 15:07) Home Medications: baclofan, metoprolol, suboxin, acamprosate Past Medical History - General Information source: Patient, Relative - Aunt - Social History Smoking Status: Current Every Day Smoker Frequency of alcohol use: Heavy Drug Abuse: None Lives with: Family Family History: Reviewed & Not Pertinent Patient has homicidal ideation: No - Past Medical History Cardiac Medical History: Denies: Hx Hypertension Pulmonary Medical History: Reports: Hx Bronchitis Renal/ Medical History: Denies: Hx Kidney Stones GI Medical History: Denies: Hx Gastroesophageal Reflux Disease Psychiatric Medical History: Reports: Hx Anxiety, Hx Depression Past Surgical History: Reports: Other - lip Review of Systems - Review of Systems Notes: Constitutional: Negative for fever. HENT: Negative for sore throat. Eyes: Negative for visual changes. Cardiovascular: Negative for chest pain. Respiratory: Negative for shortness of breath. Gastrointestinal: Negative for abdominal pain, vomiting or diarrhea. Genitourinary: Negative for dysuria. Musculoskeletal: Negative for back pain. Skin: Negative for rash. Neurological: Negative for headaches, focal weakness or numbness. 10 point ROS negative except as marked above and in HPI. Physical Exam - Vital signs Vitals: Temp Pulse Resp BP Pulse Ox 99.2 F 85 18 123/85 98 01/04/20 22:03 01/04/20 22:03 01/04/20 22:03 01/04/20 22:03 01/04/20 22:03 - Notes Notes: GENERAL: Female patient approximately stated age somewhat unkempt with strong odor of alcohol present. SKIN: Good turgor no rashes. HEAD: Normocephalic atraumatic. EYES: PERRLA. EOMI. Conjunctivae and sclerae clear. EARS: CANALS AND TMS CLEAR. NOSE: CLEAR. MOUTH: Moist mucosa. Good dentition. No stridor or edema. No drooling. NECK: Supple. No masses or thyromegaly. No adenopathy. Carotids 2+ without bruits. No JVD. BACK: Symmetrical without tenderness. CHEST: Respirations unlabored. Breath sounds clear and symmetrical. HEART: Regular rhythm. No murmur gallop or rub. ABDOMEN: Soft nontender without masses, organomegaly or rebound. Bowel sounds normally active. No bruits. GENITALIA: Deferred. EXTREMITIES: No edema. No calf tenderness. Cap refill less than 1.5 seconds. Dorsalis pedis and posterior tibial pulses 3+ and symmetrical. NEUROLOGICAL: GCS 15. Alert and oriented x3. Mildly ataxic. Slurred speech. Cranial nerves II through XII intact. Sensorimotor and cerebellar normal. Normal tone. PSYCHIATRIC: Flat affect. Course - Re-evaluation Re-evalutation: 01/05/20 01:35 Patient's blood alcohol was markedly elevated at 340. Transaminases are elevated similar to baseline from prior visits consistent with chronic alcoholic hepatitis. Plan at this time is to administer IV normal saline, thiamine and as needed Ativan. She is not showing obvious vasomotor instability or significant withdrawal currently. We will hold her in emergency department overnight and anticipate discharging her with her aunt to go to detox tomorrow morning. - Vital Signs Vital signs: Temp Pulse Resp BP Pulse Ox 99.2 F 85 11 L 111/63 94 01/04/20 22:03 01/04/20 22:03 01/05/20 02:37 01/05/20 02:37 01/05/20 02:37 - Laboratory Result Diagrams: 01/04/20 22:25 01/04/20 22:25 Laboratory results interpreted by me: 01/04/20 01/04/20 22:25 22:25 RDW 14.3 H Glucose 130 H AST 397 H ALT 196 H Serum Alcohol 340 H* Discharge - Discharge Clinical Impression: Acute alcohol intoxication, Alcoholism /alcohol abuse Condition: Stable Disposition: HOME, SELF-CARE Additional Instructions: Go to detox center as previously arranged.
[2020-01-05] MEDS ORDERED: LORAZEPAM 1 MG TABLET PO PRN (03:19)
[2020-01-05 10:07] VITALS: BP 129/99
== END 2020-01-05 10:10 | disposition home or self-care (01) ==
LOC: ER 21:36
DX: F10.20 Alcohol dependence, uncomplicated (principal); Y90.8 Blood alcohol level of 240 mg/100 ml or more; F17.200 Nicotine dependence, unspecified, uncomplicated
CPT/HCPCS: 99284; 96361; 96374; 36415; 80307 ×2; 85025; 81025; 80053; 81001; J2060; J3490; J7030